=== PATIENT | male | born 1940 | race Caucasian/White ===

== ENCOUNTER → 2016-07-23 | Outpatient (CLI) | payer OTHER, MEDICARE ==
[~2016-07-23] MED LIST: ASPEC325 PO; ATEN50TA8 PO; CRS10 PO
[2016-07-23 13:14] LABS: BLOOD UREA NITROGEN 14 mg/dl (7-18); BUN/CREATININE RATIO 13.6 (10-20); CALCIUM 9.2 mg/dl (8.5-10.1); CARBON DIOXIDE 28 mmol/L (21-32); CHLORIDE 104 mmol/L (98-107); GLUCOSE 116 mg/dl (70-99); POTASSIUM 4.4 mmol/L (3.5-5.1); SODIUM 141 mmol/L (136-145)
[2016-07-23 13:20] LABS: CHOLESTEROL 214 mg/dl (0-200); CHOLESTEROL/HDL RATIO 5.1; FREE PSA 0.39 ng/ml; HDL CHOLESTEROL 42 mg/dl; LDL CHOLESTEROL CALCULATED 135 mg/dl; TRIGLYCERIDES 183 mg/dl (0-150); VERY LOW DENSITY LIPOPROT CALC 37 mg/dl
--- NOTE | 2016-07-27 12:33 | CODING QUERY MEDICAL NECESSITY ---
SUPPORTING DIAGNOSIS NEEDED A supporting diagnosis is required for the test/procedure performed on this patient in order for us to be reimbursed by the patient's insurance. Please provide a supporting diagnosis for the following test/procedure listed below next to the test name along with your signature. *If there is no additional diagnosis for this patient that would support the following test/procedure please document that below next to the test/procedure. Test(s)/Procedure(s) that require a supporting diagnosis: DOS 07/23 * PSA DIAGNOSIS: Provider Signature: Date: Thank you Hilda Vyas Health Information Management Once completed, please kindly fax back to [phone] For questions please call [phone]
== END | disposition home or self-care (01) ==
LOC: C.LABPBG 07:51
PROVIDERS: ATTEND Physician Assistant
DX: I10 Essential (primary) hypertension (principal); E78.5 Hyperlipidemia, unspecified; Z12.5 Encounter for screening for malignant neoplasm of prostate

== ENCOUNTER → 2016-07-30 | Outpatient (CLI) | payer OTHER, MEDICARE ==
--- NOTE | 2016-07-30 14:40 | DIAGNOSTIC IMAGING REPORT ---
CT LUNG SCREENING, LOW DOSE WITH COMPUTER-AIDED DETECTION (CAD) CLINICAL HISTORY: FORMER [employer] LOW DOSE LUNG SCREENING COMPARISON STUDY: No previous studies for comparison. CT DOSE: 80.53 mGycm TECHNIQUE: Low-dose helical CT was acquired without intravenous contrast from lung apices to bases and reconstructed at 2.5 mm every 2 mm. CAD was utilized for this study. FINDINGS: Mild emphysematous change. Mild ectatic change left lung base. No significant pulmonary nodularity. No significant mediastinal or hilar adenopathy. Moderate atherosclerotic change thoracic aorta. IMPRESSION: Mild left basilar bronchiectatic change. No significant pulmonary nodularity. CAD FINDINGS: Overall Lung RADS Category: 1 Lung RADS Management Recommendation: Lung-RADS 1: Continue annual screening in 12 months. Lung RADS Follow Up Date: 2017-07-30 Lung RADS Nodule ID: Electronically signed by: Sunil Astudillo M.D. 07/30/2016 2:39 PM Dictated Date/Time: 07/30/2016 12:37 PM
== END | disposition home or self-care (01) ==
LOC: C.CTS 12:08
PROVIDERS: ATTEND Physician Assistant
DX: Z87.891 Personal history of nicotine dependence (principal)

== ENCOUNTER → 2017-07-01 | Outpatient (CLI) | payer OTHER, MEDICARE ==
[2017-07-01 13:11] LABS: BASO ABS # 0.12 K/uL (0-0.2); EOS % 4.3 %; EOS ABS # 0.26 K/uL (0-0.5); HEMATOCRIT 34.2 % (42-52); HEMOGLOBIN 11.4 g/dL (14.0-18.0); IG# 0.02 K/uL (0.00-0.02); LYMPH % 24.4 %; LYMPH ABS # 1.47 K/uL (1.2-3.4); MEAN CORPUSCULAR HGB CONC 33.3 g/dl (32-36); MEAN PLATELET VOLUME 8.9 fL (7.4-10.4); MONO % 11.1 %; MONO ABS # 0.67 K/uL (0.11-0.59); NEUT % 57.9 %; NEUT ABS # 3.49 K/uL (1.4-6.5); PLATELET COUNT 352 K/uL (130-400); RED CELL DISTRIBUTION WIDTH CV 14.5 % (11.5-14.5); RED CELL DISTRIBUTION WIDTH SD 44.5 fL (36.4-46.3); WHITE BLOOD COUNT 6.03 K/uL (4.8-10.8)
== END | disposition home or self-care (01) ==
LOC: C.LABPBG 10:41
PROVIDERS: ATTEND Physician Assistant
DX: D62 Acute posthemorrhagic anemia (principal)

== ENCOUNTER → 2017-10-29 | Outpatient (CLI) | payer OTHER, MEDICARE | END | disposition home or self-care (01) | LOC: C.LABSPEC 11:11 | PROVIDERS: ATTEND Family Medicine | DX: N39.0 Urinary tract infection, site not specified (principal) ==

== ENCOUNTER 2018-07-21 06:25 | Observation (INO) ==
--- NOTE | 2018-07-11 12:32 | PAT Medication Instructions ---
Medication Instructions Date of Service July 11, 2018 Home Medications Cardio Plat Supp 1 tab PO QAM atenolol 50 mg PO BID multivitamin 1 cap PO QAM rosuvastatin 5 mg PO QPM STOP taking 2 weeks before surgery (or as soon as possible if surgery is within 2 weeks) Cardio Plat Supp 1 tab PO QAM DO NOT take the morning of surgery multivitamin 1 cap PO QAM Take morning of surgery With a small sip of water, OTHERWISE NOTHING TO EAT OR DRINK AFTER MIDNIGHT: atenolol 50 mg PO BID Take evening before surgery atenolol 50 mg PO BID rosuvastatin 5 mg PO QPM Other Notes If you have any questions please call us at [phone] or [phone] or [phone] or [phone]
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
--- NOTE | 2018-07-11 14:14 | XRay Report ---
XR chest Pre-admission PA/Lat CLINICAL HISTORY: Preoperative chest COMPARISON STUDY: No previous studies for comparison. FINDINGS: The heart is normal in size. There is aortic tortuosity/ectasia. There is no focal pulmonar y consolidation. There are no pleural effusions. There are minimal left basilar atelectatic changes. Degenerative changes are present within the spine.[ IMPRESSION: No active disease in the chest. Electronically signed by: Capo Lai M.D. 07/11/2018 2:13 PM
[2018-07-11 14:53] LABS: Basophils # (auto) 0.06 K/uL (0-0.2); Basophils % (auto) 0.9 %; Eosinophils # (auto) 0.23 K/uL (0-0.5); Eosinophils % (auto) 3.6 %; Hematocrit (blood only) 41.2 % (42-52); Hemoglobin 13.4 g/dL (14.0-18.0); Immature Granulocytes # (auto) 0.01 K/uL (0.00-0.02); Immature Granulocytes % (auto) 0.2 %; Lymphocytes # (auto) 1.38 K/uL (1.2-3.4); Lymphocytes % (auto) 21.6 %; Mean Corpuscular Hgb Conc 32.5 g/dL (32-36); Mean Corpuscular Volume 83.6 fL (80-100); Mean Platelet Volume 9.4 fL (7.4-10.4); Monocytes # (auto) 0.56 K/uL (0.11-0.59); Monocytes % (auto) 8.8 %; Neutrophils # (auto) 4.14 K/uL (1.4-6.5); Neutrophils % (auto) 64.9 %; Platelet Count 239 K/uL (130-400); RDW Coefficient of Variation 14.4 % (11.5-14.5); RDW Standard Deviation 44.1 fL (36.4-46.3); Red Blood Count 4.93 M/uL (4.7-6.1); White Blood Count 6.38 K/uL (4.8-10.8)
[2018-07-11 15:03] LABS: Appearance Urine Clear (Clear); Bacteria Urine Automated Negative (Negative); Bilirubin Urine Negative (Negative); Blood Urine Negative (Negative); Cast Urine Automated 0 /lpf (0-5); Color Urine Yellow; Glucose Urine UA Negative (Negative); Ketones Urine Negative (Negative); Leukocyte Esterase Urine Trace (Negative); Nitrite Urine Negative (Negative); Protein Urine Negative (Negative); Specific Gravity Urine 1.018 (1.000-1.030); Urobilinogen Urine Negative (Negative); pH Urine 6.5 (4.5-7.5)
[2018-07-11 15:06] LABS: BUN Creatinine Ratio 15.4 (10-20); Calcium 9.3 mg/dl (8.5-10.1); Est GFR (African American) 93.3; Est GFR (Non-African American) 80.5; Potassium 4.2 mmol/L (3.5-5.1)
[~2018-07-21 06:25] MED LIST changes: -ASPEC325 PO; -ATEN50TA8 PO; -CRS10 PO; +LR 15ML/HR IV SCH; +cefTRIAXone SODIUM 1,000 MG in DEXTROSE 5% 50 ML IV SCH
[2018-07-21] MEDS ORDERED: ePHEDrine sulfate 50 MG/ML AMP IV PRN (08:23)
[2018-07-21] MEDS ORDERED: ATROPINE SULFATE 0.1 MG/ML 10ML SYR IV PRN (08:23)
[2018-07-21] MEDS ORDERED: HYDROmorphone INJ 1 MG/ML SYRINGE IV PRN (08:23)
--- NOTE | 2018-07-21 08:34 | History & Physical Bridge Note ---
Date of Service July 21, 2018 History & Physical Bridge Note I have examined the patient, reviewed the History & Physical and in the interval since the performance of the History & Physical I have noted the following changes of clinical significance: no changes noted
[2018-07-21] MEDS ORDERED: fentaNYL citrate 100 MCG/2 ML VIAL ONE (09:36)
[2018-07-21] MEDS ORDERED: ONDANSETRON INJ 2 MG/ML 2 ML VIAL ONE (09:36)
[2018-07-21] MEDS ORDERED: PROPOFOL IV EMULSION 10 MG/ML 20 ML VIAL IV ONE (09:36)
[2018-07-21] MEDS ORDERED: LIDOCAINE HCL 2% 2 ML VIAL/AMP(20MG/ML) INFIL ONE (09:36)
--- NOTE | 2018-07-21 09:57 | Operative Report ---
Post Operative Report Pre & Post Diagnosis Operation Date: 07/21/18 08:35 Pre-Op Diagnosis: Benign Prostatic Hyperplasia with Urinary Obstruction Post-Op Diagnosis: Benign Prostatic Hyperplasia with Urinary Obstruction Procedure Operation Date: 07/21/18 08:35 Actual Procedures p Cystoscopy, Transurethral Resection of Prostate - Wilian Hodges MD Surgeon Nam Hodges MD Metal Refiner none Estimated Blood Loss 0 Findings Consistent with Post-Op Diagnosis Specimens none Description of Procedure Patient was attentive in the preoperative holding area, appropriate informed consents reviewed and completed and the patient was transported to the operating suite. Upon arrival he received appropriate preoperative antibiotics in the fo rm of ceftriaxone. Adequate general anesthesia was achieved, the patient was placed in dorsal lithotomy position where sterilely prepped and draped in standard fashion. To begin the case I attempted to pass a 27 Mexican cystoscope, however his urethral meatus and fossa navicularis were somewhat tight. I performed a meatal dilation utilizing male urethral sounds. I was unable to pass the scope without difficulty. He has no stricture disease. He is status post prior TURP, 10+ years ago. He has significant regrowth of his prostate, predominantly from the left lateral lobe but also right lateral lobe. There is a tortuous prostatic urethra secondary to this regrowth. Inspection of his bladder revealed healthy-appearing mucosa. Of note, on office cystoscopy he had numerous ulcerated areas on the posterior wall of the bladder, these have healed. Following my inspection I exchanged the visual obturator for a resecting element, choosing a button electrode. The end of vaporizing prostate tissue on the left lateral lobe followed by the right lateral lobe. At the conclusion of my case there was excellent hemostasis and adequately open prostatic urethra. I left the bladder full and withdrew all equipment before placing a 22 Mexican Mccallum catheter. Patient was substernally extubated and taken to the PACU in stable condition. There were no complications. I attest to the content of the Intraoperative Record and any orders documented therein. Any exceptions are noted below.
[2018-07-21] MEDS ORDERED: HYDROCODONE/ACETAMOPHEN 5/325MG TAB PO PRN ×2 (11:13)
[2018-07-21] MEDS ORDERED: ONDANSETRON INJ 2 MG/ML 2 ML VIAL IV PRN (11:13)
[2018-07-21] MEDS ORDERED: ACETAMINOPHEN 325 MG TAB PO PRN (11:13)
--- NOTE | 2018-07-21 13:25 | Anesthesiology Progress Note ---
Date of Service July 21, 2018 Anesthesia Post Procedure Vital Signs Vital Signs: Temp Pulse Pulse Resp BP BP Pulse Ox 07/21/18 12:40 46 L 14 154/82 H 97 07/21/18 11:40 43 L 14 171/83 H 95 07/21/18 11:26 43 L 14 164/79 H 95 07/21/18 10:40 36.7 C 50 L 16 168/81 H 94 07/21/18 10:35 36.5 C 45 L 19 141/77 H 98 07/21/18 10:25 45 L 15 139/72 99 07/21/18 10:15 50 L 13 142/76 H 98 07/21/18 10:05 49 L 12 143/80 H 99 07/21/18 09:55 45 L 12 137/73 98 07/21/18 09:47 36.0 C L 54 L 10 L 149/82 H 98 07/21/18 06:59 37.2 C 56 L 20 177/89 H 97 Pain Intensity Lower Abdomen: Pain Intensity: 0 Notes Mental Status: alert / awake / arousable Patient Amnestic to Procedure: Yes Nausea / Vomiting: adequately controlled Pain: adequately controlled Airway Patency, RR, SpO2: stable & adequate BP & HR: stable & adequate Hydration State: stable & adequate Anesthetic Complications: no major complications apparent and Pt Satisfied with anesthetic care
[2018-07-21] MEDS ORDERED: ROSUVASTATIN CALCIUM 5 MG TAB PO SCH (21:00)
[2018-07-21] MEDS: ATENOLOL 50 MG TABLET PO SCH (21:51)
--- NOTE | 2018-07-22 07:56 | Urology Progress Note ---
Date of Service July 22, 2018 Assessment & Plan (1) BPH loc w urin obs/LUTS: POD #1 s/p TURP - d/c cath/d/c home - cover with cipro x3d - needs work excuse Subjective no issues overnight Physical Exam Physical Exam: urine clear Results & Data Vital Signs (Past 12 Hours) Vital Signs Temp Pulse Resp BP BP Pulse Ox 07/22/18 03:49 37 C 59 L 18 161/81 H 94 07/21/18 23:35 36.8 C 54 L 18 162/83 H 92 07/21/18 21:43 59 L 169/78 H
[2018-07-22 08:13] LABS: Basophils # (auto) 0.02 K/uL (0-0.2); Basophils % (auto) 0.2 %; Eosinophils # (auto) 0.12 K/uL (0-0.5); Eosinophils % (auto) 1.4 %; Hematocrit (blood only) 42.7 % (42-52); Hemoglobin 14.1 g/dL (14.0-18.0); Immature Granulocytes # (auto) 0.02 K/uL (0.00-0.02); Immature Granulocytes % (auto) 0.2 %; Lymphocytes # (auto) 1.17 K/uL (1.2-3.4); Lymphocytes % (auto) 13.7 %; Mean Corpuscular Volume 83.9 fL (80-100); Mean Platelet Volume 9.3 fL (7.4-10.4); Monocytes # (auto) 0.78 K/uL (0.11-0.59); Monocytes % (auto) 9.1 %; Neutrophils # (auto) 6.46 K/uL (1.4-6.5); Neutrophils % (auto) 75.4 %; Platelet Count 204 K/uL (130-400); RDW Coefficient of Variation 14.3 % (11.5-14.5); RDW Standard Deviation 44.4 fL (36.4-46.3); Red Blood Count 5.09 M/uL (4.7-6.1); White Blood Count 8.57 K/uL (4.8-10.8)
--- NOTE | 2018-07-22 08:31 | Anesthesiology Progress Note ---
Date of Service July 22, 2018 Anesthesia Post Procedure Vital Signs Vital Signs: Temp Pulse Pulse Resp BP BP Pulse Ox 07/22/18 08:24 36.4 C L 63 18 165/81 H 96 07/22/18 03:49 37 C 59 L 18 161/81 H 94 07/21/18 23:35 36.8 C 54 L 18 162/83 H 92 07/21/18 21:43 59 L 169/78 H 07/21/18 19:44 36.6 C 57 L 12 173/84 H 94 07/21/18 15:10 36.7 C 51 L 14 139/67 93 07/21/18 13:45 54 L 16 151/74 H 98 07/21/18 12:40 46 L 14 154/82 H 97 07/21/18 11:40 43 L 14 171/83 H 95 07/21/18 11:26 43 L 14 164/79 H 95 07/21/18 10:40 36.7 C 50 L 16 168/81 H 94 07/21/18 10:35 36.5 C 45 L 19 141/77 H 98 07/21/18 10:25 45 L 15 139/72 99 07/21/18 10:15 50 L 13 142/76 H 98 07/21/18 10:05 49 L 12 143/80 H 99 07/21/18 09:55 45 L 12 137/73 98 07/21/18 09:47 36.0 C L 54 L 10 L 149/82 H 98 Pain Intensity Lower Abdomen: Pain Intensity: 0 Notes Mental Status: alert / awake / arousable Patient Amnestic to Procedure: Yes Nausea / Vomiting: adequately controlled Pain: adequately controlled Airway Patency, RR, SpO2: stable & adequate BP & HR: stable & adequate Hydration State: stable & adequate Anesthetic Complications: no major complications apparent and Pt Satisfied with anesthetic care Notes: pt denies pain at this time
[2018-07-22 08:48] LABS: BUN Creatinine Ratio 14.1 (10-20); Calcium 9.3 mg/dl (8.5-10.1); Creatinine Clr Calc Pharmacy 78.1 ml/min; Est GFR (African American) 88.6; Est GFR (Non-African American) 76.5; Potassium 4.3 mmol/L (3.5-5.1)
[2018-07-22] MEDS: ATENOLOL 50 MG TABLET PO SCH (08:49)
[2018-07-22] MEDS ORDERED: MULTIVITAMIN TAB PO SCH (09:00)
[2018-07-22] MEDS ORDERED: cefTRIAXone SODIUM 1,000 MG in DEXTROSE 5% 50 ML IV SCH (10:00)
--- NOTE | 2018-07-28 13:24 | Discharge Summary ---
Date of Service July 28, 2018 Admission HPI Per Admitting Provider Voiding dysfunction presented for TURP Principal Diagnosis BPH Discharge Data Allergies Allergy/AdvReac Type Severity Reaction Status Date / Time No Known Allergies Allergy Verified 07/21/18 06:56 Procedures Performed Operation Date: 07/21/18 08:35 Actual Procedures p Cystoscopy, Transurethral Resection of Prostate - Wilian Hodges MD Hospital Course (1) BPH loc w urin obs/LUTS: Admitted for TURP - tolerated procedure very well - progressed appropriately overnight - passed a voiding trial on the morning of POD#1 - d/c home in stable condition Total Time Total Time Spent Total Time Spent (In Minutes): 15 Discharge Plan Discharge Items Patient Disposition: Home - Self-Care Reason For Visit: Benign Prostatic Hyperplasia with Urinary Obstruct Discharge Diagnosis: BPH with urinary obstruction Condition: Good Discharge Goals: Improve function Activity: Per 'Additional Instructions' section Lifting: Gradually increase as tolerated Bathing: No limitations Sexual Activity: Wait until after follow-up appointment Exercise/Sports: Gradually increase as tolerated Driving/Machine Use: No limitations Non-emergency contact: Urologist Call non-emergency contact if: you have any medication questions, your pain is concerning for you and your temperature is above 101 Follow-up/Referrals: Martha Mittal, [Primary Care Provider] - Diet: Regular Addtl Provider Instructions: Please keep all follow up appointments with Dr. Hodges. Call Urology office at [phone] with any questions or concerns. Finish all antibiotic (Cipro) tablets as prescribed. Take Tylenol per dosing instructions on bottle as needed for discomfort. The nurses at Dr. Hodges's office will be able to provide you with a work excuse - call office number above, ask to speak with nurses, and provide fax number for your employer where this note can be sent. Prescriptions: New ciprofloxacin HCl [Cipro] 500 mg tablet 500 mg PO BID Qty: 6 RF: 0 Continued multivitamin Capsule 1 cap PO QAM RF: 0 atenolol 50 mg Tablet 50 mg PO BID RF: 0 rosuvastatin 5 mg Tablet 5 mg PO QPM RF: 0 Cardio Plat Supp 1 tab PO QAM RF: 0 Discontinued finasteride RF: 0 Stand-Alone Forms: [facility] Discharge Orders: Discharge Order (Routine); Ordered 07/22/18 Ordered By: Christen Rene Admission Data Admit Date/Time: 07/21/18 11:02 Attending Provider: Wilian Hodges Admit Provider: Wilian Hodges Primary Care Provider: Martha Mittal Service: Surgical Services Other Interventions: Discharge Summary Assessment (RN) Last Done: 07/22/18 09:46 DC Date/Time DO NOT enter until pt leaves facility: 07/22/18 10:13
--- OUTSIDE RECORDS SUMMARY | 2018-07-28 14:23 | External Medical Summary | Continuity of Care Document ---
:1940 Author Name Shikha Arnold, Provider Address Unavailable Unavailable , Care Team Providers Name Role Phone Carroll Arnold, Nam Unavailable [email or web address] Daxa KLINE, Manish Unavailable Keri Arana PA-C Unavailable [email or web address] Greco DO, Moris Unavailable [email or web address] Alvarez GRIFFIN, Paul Carrillo Unavailable [email or web address] DAXA Arnold, MANISH Cameron Unavailable Unavailable Unavailable Unavailable Problems Former heavy cigarette smoker (20-39 per day) (V15.82) (Z87. 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 Catalina Hodges Start: 26-Jun-2018 Quantity: 30 Refills: 11 ProAir HFA 108 (90 Base) MCG/ACT Inhalat ion Aerosol Solution; INHALE 1 TO 2 PUFFS EVERY 4 TO 6 HOURS NEEDED. ADAM Arana Start: 20-Jul-2016 Quantity: 1 8.5 GM Inhaler Refills: 0 Atenolol 50 MG Oral Tablet; Take 1 tablet by mouth tw ice a day DO Manish Mittal Start: 20-Jul-2016 Quantity: 180 Refills: 1 Phenazopyridine HCl - 200 MG Oral Tablet ; TAKE 1 TABLET 3 TIMES DAILY NEEDED FOR PAIN. DO Moris Greco Start: 07-Mar-2018 Quantity: 21 Refills: 1 Rosuvastatin Calcium 10 MG Oral Tablet; Take 1 tablet by mouth at bedtime DO Manish Mittal Start: 20-Jul-2016 Quantity: 90 Refills: 1 Procedures History of Elbow Surgery Status: Complet ed History of open reduction-internal fixation Status: Completed Comments: Completed: 2009 History of Spinal Diskectomy Lumbar Stat us: Completed Comments: Completed: Approx 2011 History of prostate resection transurethral Status: Completed Immunizations Prevnar 13 Intramuscular Suspension On: 20-Jul-2010 Td On: 21-Jul-2015 Zoster (Zostavax) On: 21-Jul-2015 Pneumovax 23 25 MCG/0.5ML Injection Injectable On: 09-Feb-20 17 11:02 Lot #: [id number], [employer] Family History Mother Family history of cardiac disorder (V17.49) (Z82.49) Status: Active Family history of myocardial infarction (V17.3) (Z82.49) Sta tus: Active Family history of cerebrovascular accident (CVA) (V17.1) (Z8 2.3) Status: Active Father Family history of myocardial infarction (V17.3) (Z82.49) Sta tus: Active Family history of suicide (V17.0) (Z81.8) Status: Active Social History - Smoking Status Former smoker Plan of Treatment Planned Encounters Appointment; Paul Pino CRNP Start: 22-Apr-2019 9:00 Request Planned Observations Planned Goals not documented Results In-House UA (Urology) (Pending) Laboratory: In House 04-Jul-2018 12:37 VOID, CC, CATH CC Turbid, Clear, Hazy Clear Gluc 0 Prot 0 Nitrate 0 Leuk trace Blood trace pH 6.0 MICROSCOPIC small bacteria, 10- 15 wbc's Urine Culture 11-Jul-2018 13:38 URINE CULTURE CATH ORDERED PROCEDURE : Urine Culture; Speciment : Urine,Clean Catch Urine Culture : No growth - less than 1,000 colonies/mL. Encounters Appointment; Nam Hodges M.D. 21-Jul-2018 10:00 Encounter Diagnosis: Problem not documented Appointment; Nam Hodges M.D. 04-Jul-2018 13:00 Encounter Diagnosis: Problem not documented Appointment; Urology, Room 8 04-Jul-2018 12:45 Encounter Diagnosis: Problem not documented Appointment; Nam Hodges M.D. 26-Jun-2018 10:20 Encounter Diagnosis: Problem not documented Appointment; Paul Pino CRNP 21-Apr-2018 11:40 Encounter Diagnosis: Problem not documented Appointment; Moris Greco DO 07-Mar-2018 8:40 Encounter Diagnosis: Problem not documented Appointment; Nurse Efrain 28-Feb-2018 8:30 Encounter Diagnosis: Problem not documented Appointment; Manish Mittal DO 29-Oct-2017 10:20 Encounter Diagnosis: Problem not documented Appointment; Manish Mittal DO 28-Oct-2017 10:40 Encounter Diagnosis: Problem not documented Appointment; Manish Mittal DO 30-Sep-2017 9:00 Encounter Diagnosis: Problem not documented Appointment; Keri Arana PA-C 01-Jul-2017 10:00 Encounter Diagnosis: Problem not documented Appointment; Keri Arana PA-C 08-Feb-2017 10:30 Encounter Diagnosis: Problem not documented Appointment; Paul Pino CRNP 22-Apr-2019 9:00 Encounter Diagnosis: Problem not documented
== END 2018-07-22 10:13 | disposition home or self-care (01) ==
LOC: 3W 06:25 → ASU 06:25

== ENCOUNTER 2019-12-24 08:29 | Observation (INO) ==
--- NOTE | 2019-12-15 15:09 | PAT Medication Instructions ---
Medication Instructions Date of Service December 15, 2019 Home Medications Medication Instructions Recorded multivitamin 1 cap PO QAM #30 cap 10/20/18 atenolol 50 mg tablet 50 mg PO BID #180 tab 11/17/19 sulfamethoxazole 800 1 tab PO BID 5 Days #10 tab 12/11/19 mg-trimethoprim 160 mg tablet albuterol sulfate 90 mcg/actuation aerosol inhaler See Rx Instructions INH .COMPLEX PRN multivitamin 1 cap PO QAM atenolol 50 mg tablet 50 mg PO BID sulfamethoxazole 800 mg-trimethoprim 160 mg tablet 1 tab PO BID finasteride 5 mg PO QAM rosuvastatin 10 mg PO HS Continue as directed sulfamethoxazole 800 mg-trimethoprim 160 mg tablet 1 tab PO BID DO NOT take the morning of surgery multivitamin 1 cap PO QAM Take morning of surgery With a small sip of water, OTHERWISE NOTHING TO EAT OR DRINK AFTER MIDNIGHT: albuterol sulfate 90 mcg/actuation aerosol inhaler See Rx Instructions INH .C OMPLEX PRN (use if needed; please bring with you to hospital day of surgery if possible) atenolol 50 mg tablet 50 mg PO BID finasteride 5 mg PO QAM Take evening before surgery albuterol sulfate 90 mcg/actuation aerosol inhaler See Rx Instructions INH .COMPLEX PRN (if needed) atenolol 50 mg tablet 50 mg PO BID rosuvastatin 10 mg PO HS Other Notes If you have any questions please call us at [phone] or [phone] or [phone] or [phone]
--- NOTE | 2019-12-16 10:23 | Anesthesiology Consultation ---
Date of Service December 16, 2019 Assessment & Plan (1) Encounter for pre-operative examination: Chart Review Chart Review: Acceptable Risk for Surgery (pending preop Covid testing results ) and Patient seen in Pre Admission Testing Per PAT appt on 12/16/19, pt denies any recent travel. No known Covid positive contacts or Covid related symptoms. Scheduled for preop Covid testing 12/21/19. Educated on importance of self quarantining, social distancing and wearing mask in public both for the patient and household contacts. TURP 07/21/18= Doen under GA with LMA #5. Teaching & Discussion Pre-Anesthesia Teaching/Discussion Notes: Instructed NPO after midnight before surgery,except medications with 15 cc of water. Medication instructions pro vided according to the PAT guidelines. History Surgery Operation Date: 12/24/19 13:10 Proposed Procedures p Cystoscopy, Bladder Biopsies, Fulguration, Possible Bilateral Pyelogram - Wilian Hodges MD Height/Weight Height: 6 ft Weight: 97.3 kg Allergies Allergy/AdvReac Type Severity Reaction Status Date / Time No Known Drug Allergies Allergy Verified 12/15/19 13:19 Medications Home Medications Medication Instructions Recorded Confirmed Last Taken albuterol sulfate 90 mcg/actuation See Rx Instructions INH .COMPLEX 10/20/18 12/15/19 Unknown aerosol inhaler PRN multivitamin 1 cap PO QAM #30 cap 10/20/18 12/15/19 Unknown atenolol 50 mg tablet 50 mg PO BID #180 tab 11/17/19 12/15/19 Unknown sulfamethoxazole 800 1 tab PO BID 5 Days #10 tab 12/11/19 12/15/19 Unknown mg-trimethoprim 160 mg tablet finasteride 5 mg PO QAM 12/15/19 12/15/19 Unknown rosuvastatin 10 mg PO HS 12/15/19 12/15/19 Unknown Past Medical History Medical History BPH loc w urin obs/LUTS Chronic obstructive pulmonary disease STABLE Degenerative disc disease History of blood transfusion S/P - 1982 Hyperlipidemia Hypertension Exercise / Class Metabolic Activity II 4-5 Yardwork/Stairs/Walk up hill (one flight of stairs- no chest pain or SOB) Past Family History Family History Mother Cardiac disorder Myocardial infarction [place] in 50's Stroke Father Myocardial infarction Family history of suicide Other No family history of adverse response to anesthesia Denies family history of Ovarian cancer Prostate cancer Breast cancer Colorectal cancer Past Surgical History Surgical History H/O transurethral resection of prostate 07/21/2018 [facility] History of cataract extraction with lens replacement LEFT History of colonoscopy History of discectomy LUMBAR History of elbow surgery History of open reduction and internal fixation (ORIF) procedure LLE (1982) AFTER NON-UNION FX-- MULTIPLE SURGERIES Past Anesthesia History No Hx of Anesthesia Complications and No Family Hx of Anesthesia Complications History of PONV No Hx of PONV and No Hx of Motion Sickness Social History Smoking Status: Former smoker tobacco type: cigarettes Smoking cigarettes per day: 40 Do You Dip or Chew Tobacco: No Smoking End Date: quit 10 years ago Hx Alcohol Use: Yes Alcohol type: beer and other alcohol intake frequency: a few times a month (on the weekends ) Hx Substance Use: No substance use type: does not use Review of Systems Patient denies chest pain, shortness of breath, dyspnea on exertion, reflux, cough, wheezing, palpitations. No hx of seizures, stroke, [place], apnea/snoring. No hx of blood clots. Physical Exam Vital Signs VITALS BP 145/77 P 49 (pt does occ have dizziness- did instruct patient to follow up with PCP- may need Atenolol dose adjusted) TEMP 98.4 SP02 96% RESP 16 Constitutional no acute distress ENMT Mouth: no TMJ clicking Thyromental Distance: > or= 3.5 Finger Breadths (3.5) Mallampati Class: II Mouth / Teeth: 1. Missing 2. Missing 3. Missing 4. Missing Missing molars and side teeth on top and bottom Neck + limited neck extension (minimal ) Respiratory normal respiratory effort; no respiratory distress Auscultation: lungs clear to auscultation bilaterally; no wheezes Cardiovascular Rate/Rhythm: regular rate and regular rhythm Heart Sounds: no murmur Vessels: no carotid bruit Heart sounds diminished throughout Musculoskeletal Spine: no pain with cervical ROM Neurologic moves all extremities Psychiatric Orientation: alert Testing Laboratory Results 12/16/19 10:43 12/09/19= SODIUM: 137 POTASSIUM: 4.2 CHLORIDE: 106 CO2: 24 BUN: 17 CREATININE: 0.93 GLUCOSE: 99 URINE CULTURE: E coli (being treated with Bactrim) 11/30/19= UA: Trace leukocyte esterase Electrocardiogram Date: 12/16/19 SB with 1st degree AVB at 48 bpm. LAFB Chest X-Ray Date: 12/16/19 Findings: + NAD Other Testing Chest CT 09/07/19= Mild cardiomegaly. Coronary artery calcification. Central airways patent. No consolidation present. No suspicious pulmonary nodules. Few tiny granulomas which are benign. LLL opacity reflects atelectasis.
--- NOTE | 2019-12-16 11:09 | XRay Report ---
XR chest Pre-admission PA/Lat CLINICAL HISTORY: Preoperative chest COMPARISON STUDY: 07/11/2018 FINDINGS: The cardiac and mediastinal contours remain stable. There is aortic tortuosity. There is no failure. There is no focal pulmonary consolidation. There are no pleural effusions. Degenerative michelle nges are present within the cervical spine.[ IMPRESSION: No active disease in the chest. ACT 112: Negative or not required by law. Electronically signed by: Capo Lai M.D. 12/16/2019 11:07 AM
[2019-12-16 11:15] LABS: Basophils # (auto) 0.04 K/uL (0-0.2); Basophils % (auto) 0.6 %; Eosinophils # (auto) 0.11 K/uL (0-0.5); Eosinophils % (auto) 1.6 %; Hematocrit (blood only) 43.3 % (42-52); Hemoglobin 14.3 g/dL (14.0-18.0); Immature Granulocytes # (auto) 0.02 K/uL (0.00-0.02); Immature Granulocytes % (auto) 0.3 %; Lymphocytes # (auto) 1.52 K/uL (1.2-3.4); Lymphocytes % (auto) 21.8 %; Mean Corpuscular Hemoglobin 28.1 pg (25-34); Mean Corpuscular Volume 85.2 fL (80-100); Monocytes # (auto) 0.48 K/uL (0.11-0.59); Monocytes % (auto) 6.9 %; Neutrophils % (auto) 68.8 %; Platelet Count 269 K/uL (130-400); RDW Coefficient of Variation 14.3 % (11.5-14.5); Red Blood Count 5.08 M/uL (4.7-6.1); White Blood Count 6.97 K/uL (4.8-10.8)
--- NOTE | 2019-12-16 13:30 | Electrocardiogram Report ---
Test Reason : Blood Pressure : / mmHG Vent. Rate : 048 BPM Atrial Rate : 048 BPM P-R Int : 286 ms QRS Dur : 100 ms QT Int : 470 ms P-R-T Axes : 073 -46 021 degrees QTc Int : 419 ms Sinus bradycardia with 1st degree A-V block Left anterior fascicular block Abnormal ECG When compared with ECG of 11-JUL-2018 13:35, IN interval has increased Left anterior fascicular block is now Present Confirmed by Bran Edwards ([id number]) on 12/16/2019 1:29:58 PM Referred By: Wilian Hodges Confirmed By:Bran Edwards
[~2019-12-24 08:29] MED LIST changes: +CIPROFLOXACIN / D5W 400 MG/200 ML BAG IV SCH; -cefTRIAXone SODIUM 1,000 MG in DEXTROSE 5% 50 ML IV SCH
[2019-12-24] MEDS ORDERED: MIDAZOLAM HCL 1 MG/ML 2ML VIAL ONE (09:00)
[2019-12-24] MEDS ORDERED: fentaNYL citrate 100 MCG/2 ML VIAL ONE (09:01)
[2019-12-24] MEDS ORDERED: LIDOCAINE HCL 2% 2 ML VIAL/AMP(20MG/ML) INFIL ONE (09:03)
[2019-12-24] MEDS ORDERED: PROPOFOL IV EMULSION 10 MG/ML 20 ML VIAL IV ONE ×2 (09:03→10:59)
[2019-12-24] MEDS ORDERED: ONDANSETRON INJ 2 MG/ML 2 ML VIAL ONE (09:03)
[2019-12-24] MEDS ORDERED: ATROPINE SULFATE 0.1 MG/ML 10ML SYR IV PRN (10:20)
[2019-12-24] MEDS ORDERED: LABETALOL HCL IV 5 MG/ML 20ML IV PRN (10:20)
[2019-12-24] MEDS ORDERED: ONDANSETRON INJ 2 MG/ML 2 ML VIAL IV PRN (10:20)
[2019-12-24] MEDS ORDERED: fentaNYL citrate 100 MCG/2 ML VIAL IV PRN (10:20)
--- NOTE | 2019-12-24 10:22 | History & Physical Bridge Note ---
Date of Service December 24, 2019 History & Physical Bridge Note I have examined the patient, reviewed the History & Physical and in the interval since the performance of the History & Physical I have noted the following changes of clinical significance: no changes noted
--- NOTE | 2019-12-24 11:28 | Operative Report ---
PG Post Operative Report Pre & Post Diagnosis Operation Date: 12/24/19 10:15 Pre-Op Diagnosis: Bladder Ulcer Post-Op Diagnosis: Bladder Ulcer I identified the patient and participated in the time-out.: Yes Procedure Operation Date: 12/24/19 10:15 Actual Procedures p Cystoscopy, Bladder Biopsies, Fulguration(Not Applicable) - Wilian Hodges MD Surgeon Nam Hodges MD Entry Level Receptionist none Estimated Blood Loss 0 Findings Consistent with Post-Op Diagnosis Specimens Bladder biopsy Description of Procedure The patient was identified in the preoperative holding area, appropriate informed consents were reviewed and completed and the patient was transferred to the operative suite. Upon arrival, appropriate antibiotics and anesthesia were administered and the patient was placed in dorsal lithotomy position and prepped and draped in sterile fashion. To begin the case I passed a 28 [place] resectoscope with 30 degree lens and visual obturator. Inspection revealed a healthy-appearing urethra with a prostate that is status post TURP and widely patent. Inspection of the bladder was conducted utilizing both a 30 and 70 degree lens. There were several ulcerated areas on the upper posterior wall. I photographed these. I then passed a biopsy forcep and biopsy of these areas. Specimens were passed off the table and the loop electrocautery was used to fulgurate the areas entirely. In total I would estimate I treated an area of approximately 5 cm. There was no papillary tumor associated with any of these ulcerated areas. He was very hemostatic at the conclusion of the case. He was subsequently reversed from anesthesia and taken to the recovery room in stable condition. There were no complications. I attest to the content of the Intraoperative Record and any orders documented therein. Any exceptions are noted below.
--- NOTE | 2019-12-24 11:51 | Anesthesiology Progress Note ---
Date of Service December 24, 2019 Anesthesia Post Procedure Vital Signs Vital Signs: Temp Pulse Pulse Resp BP BP Pulse Ox 12/24/19 11:40 36.3 C L 49 L 16 128/69 95 12/24/19 11:30 52 L 17 128/73 93 12/24/19 11:20 36.2 C L 58 L 16 131/71 96 12/24/19 09:08 36.7 C 55 L 18 163/84 H 97 Transfer of Care Handoff Completed per policy Notes Mental Status: alert / awake / arousable Patient Amnestic to Procedure: Yes Nausea / Vomiting: adequately controlled Pain: adequately controlled Airway Patency, RR, SpO2: stable & adequate BP & HR: stable & adequate Hydration State: stable & adequate Anesthetic Complications: no major complications apparent
[2019-12-24] MEDS ORDERED: HYDROCODONE/ACETAMOPHEN 5/325MG TAB PO PRN (12:35)
[2019-12-24] MEDS ORDERED: ACETAMINOPHEN 325 MG TAB PO PRN (12:35)
[2019-12-24] MEDS ORDERED: LACTATED RINGER'S 1,000 ML IV SCH (12:35)
[2019-12-24] MEDS: CEFAZOLIN 1000MG 1,000 MG/7.5 ML SYR IV SCH ×2 (15:11→22:46)
[2019-12-24] MEDS: ATENOLOL 50 MG TABLET PO SCH (20:06)
[2019-12-24] MEDS ORDERED: ROSUVASTATIN CALCIUM 10 MG TAB PO SCH (21:00)
[2019-12-25] MEDS: ATENOLOL 50 MG TABLET PO SCH (07:49)
[2019-12-25] MEDS ORDERED: FINASTERIDE 5 MG TAB PO SCH (09:00)
[2019-12-25] MEDS ORDERED: MULTIVITAMIN TAB PO SCH (09:00)
--- NOTE | 2019-12-25 10:26 | Urology Progress Note ---
Date of Service December 25, 2019 Assessment & Plan (1) Bladder ulcer: s/p biopsy and fulguration of bladder ulcer - doing great - d/c home Admission and Anticipated Discharge Date Admission Date: December 24, 2019 Subjective no issues overnight anxious to go home Physical Exam Constitutional: well developed and well nourished Respiratory: no respiratory distress Cardiovascular: Extremities: no pedal edema Gastrointestinal (Abdomen): Inspection/Auscultation: abdomen normal to inspection Results & Data ([facility]) Vital Signs (Past 12 Hours) Vital Signs Temp Pulse Pulse Resp BP Pulse Ox 12/25/19 07:20 36.6 C 51 L 18 134/75 95 12/25/19 02:23 36.4 C L 50 L 16 138/74 92 12/24/19 22:50 36.6 C 60 16 142/79 H 93 PG Care Time/CCT Total # of Minutes Spent Total Time Spent with Patient: Total time spent is greater than 50% in coordination of care (as documented) at patient's floor/unit and/or counseling patient: Coding Level of Care Code 42522 Subseq Hosp Care Lvl 2 Diagnoses Bladder ulcer N32.89
--- NOTE | 2020-01-01 08:07 | Discharge Summary ---
Date of Service January 01, 2020 Admission HPI Per Admitting Provider Presenting for bladder biopsy and fulgurationno ride home so requested an overnight admission Principal Diagnosis Bladder ulcer Discharge Data Allergies Allergy/AdvReac Type Severity Reaction Status Date / Time No Known Drug Allergies Allergy Verified 12/31/19 09:05 Procedures Performed Operation Date: 12/24/19 10:15 Actual Procedures p Cystoscopy, Bladder Biopsies, Fulguration(Not Applicable) - Wilian Hodges MD Hospital Course (1) Recurrent urinary tract infection: (2) Elevated PSA: (3) Bladder ulcer: Admitted and underwent an uneventful bladder biopsy and fulguration Stayed overnight without issue and was discharged home in the morning of postoperative day #1 Total Time Total Time Spent Total Time Spent (In Minutes): 10 Total Time Includes: Examination of the Patient, Discharge Planning, Medication Reconciliation, Communication With Other Providers and Other Discharge Plan Discharge Items Patient Disposition: Home - Self-Care Reason For Visit: Bladder Ulcer Discharge Diagnosis: bladder ulcer Activity: Resume your previous activity Lifting: Gradually increase as tolerated Bathing: No limitations Sexual Activity: When tolerated Exercise/Sports: Gradually increase as tolerated Driving/Machine Use: No limitations Non-emergency contact: Urologist Call non-emergency contact if: you have any medication questions, your pain is worsening, you have a fever and your temperature is above 101.5 Follow-up/Referrals: Wilian Hodges MD [Physician] - 01/06/20 11:00 am (DR HODGES WILL CALL) Martha Mittal DO [Primary Care Provider] - 12/31/19 9:20 am Diet: Regular Addtl Attending Provider Instructions: Please take all medications as prescribed and keep all follow-ups as scheduled. Please call our office at [phone] with any questions, concerns or need to reschedule appointments for any reason. Tips for your recovery at home: Once youre home, be as active as you comfortably can. We encourage you to walk around, but avoid exercise or heavy activities until youre feeling better. You can likely return to your normal routine in a couple days. If you go home with a catheter, please wash with soapy water and a fresh washcloth twice daily. We recommend mild bar soap like Dial or Dove. Pain or burning with urination is normal for a few days after your procedure while your bladder heals. Biopsy results will be discussed at your follow-up office visit. Call [facility] at [phone] promptly if you experience: Fever of 101F or greater Pain thats not controlled with medicine Trouble urinating or inability to urinate Dark, bloody urine for more than 12 hours Pending Studies at Discharge: No Stand-Alone Forms: My [facility] [employer], Smoking Cessation Medications and DC Order Prescriptions: Continued multivitamin capsule 1 cap PO QAM Qty: 30 RF: 5 finasteride 5 mg tablet 5 mg PO QAM RF: 0 rosuvastatin 10 mg tablet 10 mg PO HS RF: 0 No Action atenolol 50 mg tablet 50 mg PO DAILY Qty: 90 RF: 1 Discharge Orders: Discharge Order (Routine); Ordered 12/25/19 Ordered By: Wilian Lee/Other Patient Handouts: Anatomy of the Male Urinary Tract, ED Urine Strainer Admission Data Admit Date/Time: 12/24/19 11:35 Attending Provider: Wilian Hodges Admit Provider: Wilian Hodges Primary Care Provider: Martha Mittal Other Interventions: Discharge Summary Assessment (RN) Last Done: 12/25/19 10:36 Coding Level of Care Code D/C Day Management <30 mins Diagnoses Recurrent urinary tract infection N39.0 Elevated PSA R97.20 Bladder ulcer N32.89
== END 2019-12-25 10:55 | disposition home or self-care (01) ==
LOC: 3W 08:29 → ASU 08:29
DX: I10 Essential (primary) hypertension; Z79.899 Other long term (current) drug therapy; Z87.891 Personal history of nicotine dependence; N30.00 Acute cystitis without hematuria; J44.9 Chronic obstructive pulmonary disease, unspecified; N32.89 Other specified disorders of bladder; Z11.59 Encounter for screening for other viral diseases; N40.1 Benign prostatic hyperplasia with lower urinary tract symptoms; E78.5 Hyperlipidemia, unspecified